=== PATIENT | female | born 1970 | race African-American/Black ===

== ENCOUNTER 2018-05-07 07:37 | Emergency (ER) | payer OTHER ==
[2018-05-07 08:08] VITALS: BP 137/83; PULSE 100; TEMP 98.4; BMI 38.7
[2018-05-07] MEDS ORDERED: KETOROLAC TROMETHAMINE 30 MG/1 ML VIAL IM ONE (08:34)
--- NOTE | 2018-05-07 08:39 | PDOC ---
History of Present Illness - General Chief Complaint: Back Pain Stated Complaint: LOWER BACK PAIN Time Seen by Provider: 05/07/18 08:29 History Source: Patient Exam Limitations: No Limitations - History of Present Illness Initial Comments: 05/07/18 08:35 48 yr female with c/o right mid back pain for 3 days radiates to her right flank. no abd pain neg fever neg chills neg urine complaints. Pt states pain worse with lying down , relieved in she holds the area. Pt has history of herniated lumbar discs , however this pain is different. pt took ibuprofen and flexeril yesterday without relief. Severity: reports: moderate Pain Location: reports: back (right side mid back) Method of Injury: Yes: unknown Modifying Factors: improves with: None Past History - Past Medical History Allergies/Adverse Reactions: Allergies Allergy/AdvReac Type Severity Reaction Status Date / Time No Known Allergies Allergy Verified 05/07/18 08:01 Home Medications: Ambulatory Orders Diazepam [Valium] 5 mg PO Q8H PRN #12 tablet MDD 15mg 05/07/18 Oxycodone HCl/Acetaminophen [Percocet 5-325 mg Tablet] 1 tab PO Q6H PRN #8 tablet MDD 4 tabs 05/07/18 Asthma: No COPD: No Diabetes: No HTN: No Hypercholesterolemia: No - Suicide/Smoking/Psychosocial Hx Smoking Status: No Smoking History: Never smoked Number of Cigarettes Smoked Daily: 0 Hx Alcohol Use: No Drug/Substance Use Hx: No Substance Use Type: None Review of Systems - Review of Systems Able to Perform ROS?: Yes Is the patient limited Bel[place]ian proficient: No Constitutional: No: Symptoms Reported HEENTM: No: Symptoms Reported Respiratory: No: Symptoms reported Cardiac (ROS): No: Symptoms Reported ABD/GI: No: Symptoms Reported : No: Symptoms Reported Musculoskeletal: Yes: Symptoms Reported, Back Pain Integumentary: No: Symptoms Reported Neurological: No: Symptoms reported *Physical Exam - Vital Signs Last Vital Signs Temp Pulse Resp BP Pulse Ox 98.4 F 100 H 18 137/83 100 05/07/18 08:02 05/07/18 08:02 05/07/18 08:02 05/07/18 08:02 05/07/18 08:02 - Physical Exam General Appearance: Yes: Nourished, Appropriately Dressed HEENT: positive: EOMI, JHONNY, Normal ENT Inspection, TMs Normal, Pharynx Normal Neck: positive: Supple Respiratory/Chest: positive: Lungs Clear, Normal Breath Sounds. negative: Chest Tender Cardiovascular: positive: Regular Rhythm, Regular Rate Gastrointestinal/Abdominal: positive: Normal Bowel Sounds, Soft. negative: Tender Musculoskeletal: positive: Normal Inspection, CVA Tenderness (R). negative: Vertebral Tenderness Extremity: positive: Normal Capillary Refill, Normal Inspection, Normal Range of Motion Integumentary: positive: Normal Color, Dry, Warm Neurologic: positive: Fully Oriented, Alert, Normal Mood/Affect, Normal Response , Motor Strength 5/5 Moderate Sedation - Procedure Monitoring Vital Signs: Procedure Monitoring Vital Signs Temperature 98.4 F 05/07/18 08:02 Pulse Rate 100 H 05/07/18 08:02 Respiratory Rate 18 05/07/18 08:02 Blood Pressure 137/83 05/07/18 08:02 O2 Sat by Pulse Oximetry (%) 100 05/07/18 08:02 Medical Decision Making - Medical Decision Making 05/07/18 08:38 cc: mid back pain radiating to right flank, positional no fever no chest pain noo SOB no rashes no foreign travel will r/o kidney infection, pneumonia no evidence of herpes zoster toradol for pain 05/07/18 09:23 *DC/Admit/Observation/Transfer Diagnosis at time of Disposition: Back pain Qualifiers: Back pain location: thoracic back pain Chronicity: acute Back pain laterality: right Qualified Code(s): M54.6 - Pain in thoracic spine - Discharge Dispostion Disposition: HOME Condition at time of disposition: Good - Prescriptions Prescriptions: Diazepam [Valium] 5 mg PO Q8H PRN #12 tablet MDD 15mg PRN Reason: Muscle Spasms Oxycodone HCl/Acetaminophen [Percocet 5-325 mg Tablet] 1 tab PO Q6H PRN #8 tablet MDD 4 tabs PRN Reason: Severe Pain - Referrals Referrals: Keshawn Woodson MD [Primary Care Provider] - - Patient Instructions Additional Instructions: please call your primary care doctor TUESDAY to make appointment for follow up this week take valium as directed for muscle spasm as needed take percocet for severe pain , do not take with the valium, you can take valium with ibuprofen apply warm compresses, heating pad to the area of pain if any worsening symptoms return to the ER - Post Discharge Activity
[2018-05-07 09:06] LABS: URINE APPEARANCE CLOUDY; URINE BILIRUBIN NEGATIVE (<2.0 mg/dL); URINE COLOR YELLOW; URINE GLUCOSE (UA) NEGATIVE (NEGATIVE); URINE KETONE NEGATIVE (NEGATIVE); URINE LEUK ESTERASE TRACE (NEGATIVE); URINE NITRITE NEGATIVE (NEGATIVE); URINE PROTEIN NEGATIVE (NEGATIVE); URINE UROBILINOGEN NEGATIVE mg/dL (0.2-1.0)
[2018-05-07 09:14] LABS: EPI CELLS MANY /HPF (FEW); URINE BACTERIA RARE /hpf (NONE SEEN); URINE MUCUS FEW
== END 2018-05-07 11:20 | disposition home or self-care (01) ==
LOC: JERFT 07:37
PROC: 3E0233Z Introduction of Anti-inflammatory into Muscle, Percutaneous Approach (ICD-10-PCS; principal; 2018-05-07)
DX: M54.6 Pain in thoracic spine (principal)
CPT/HCPCS: 71046-TC-FY; 76775-TC; 81003; 81015; 96372; 99281-25

== ENCOUNTER 2018-08-04 08:14 | Emergency (ER) | payer OTHER ==
[2018-08-04 08:17] VITALS: BP 141/91; PULSE 91; TEMP 98.2; BMI 38.7
--- NOTE | 2018-08-04 08:41 | PDOC ---
History of Present Illness - General Chief Complaint: Ingestion Stated Complaint: OTHER Time Seen by Provider: 08/04/18 08:35 History Source: Patient Exam Limitations: No Limitations - History of Present Illness Initial Comments: 08/04/18 08:58 States woke up this morning and had a missing dental cap That was an implant From an upper first molar. Was concerned because it has a sharp projection from that and didn't know if it would pass safely. Is uncertain as to have a foreign body sensation in her throat and was too afraid to swallow anything to drink this morning. Occurred: reports: yesterday Pain Location: reports: none Method of Injury: Yes: unknown Associated Symptoms (Fall): denies symptoms Past History - Travel Traveled outside of the country in the last 30 days: No Close contact w/someone who was outside of country & ill: No - Past Medical History Allergies/Adverse Reactions: Allergies Allergy/AdvReac Type Severity Reaction Status Date / Time No Known Allergies Allergy Verified 08/04/18 08:30 Home Medications: Ambulatory Orders NK [No Known Home Medication] 08/04/18 Asthma: No COPD: No Diabetes: No HTN: No Hypercholesterolemia: No Thyroid Disease: Yes (hypo) - Suicide/Smoking/Psychosocial Hx Smoking Status: No Smoking History: Never smoked Have you smoked in the past 12 months: No Number of Cigarettes Smoked Daily: 0 Information on smoking cessation initiated: No Hx Alcohol Use: No Drug/Substance Use Hx: No Substance Use Type: None Review of Systems - Review of Systems Able to Perform ROS?: Yes Is the patient limited Bulgarian proficient: Yes Constitutional: Yes: Symptoms Reported, See HPI. No: Fever, Malaise HEENTM: Yes: See HPI. No: Symptoms Reported Respiratory: Yes: See HPI All Other Systems: Reviewed and Negative *Physical Exam - Vital Signs Last Vital Signs Temp Pulse Resp BP Pulse Ox 98.2 F 91 H 18 141/91 100 08/04/18 08:14 08/04/18 08:14 08/04/18 08:14 08/04/18 08:14 08/04/18 08:14 - Physical Exam General Appearance: Yes: Nourished, Appropriately Dressed. No: Apparent Distress HEENT: positive: JHONNY, Normal ENT Inspection (no redness/ swelling / redness to throat), TMs Normal, Pharynx Normal (no redness/ swelling ) Neck: positive: Supple, Lymphadenopathy (R), Lymphadenopathy (L). negative: Tender Respiratory/Chest: positive: Lungs Clear, Normal Breath Sounds Gastrointestinal/Abdominal: positive: Normal Bowel Sounds, Soft. negative: Tender Musculoskeletal: positive: Normal Inspection Extremity: positive: Normal Capillary Refill Integumentary: positive: Dry, Warm, Pale Neurologic: positive: solar pv installer II-XII NML intact, Fully Oriented, Alert, Normal Mood/ Affect, Normal Response, Motor Strength 5/5 Progress Note - Progress Note Progress Note: Foreign body ingestion, no evidence of foreign body noted in throat, airway patent. *DC/Admit/Observation/Transfer Diagnosis at time of Disposition: Swallowed foreign body Qualifiers: Encounter type: initial encounter Qualified Code(s): T18.9XXA - Foreign body of alimentary tract, part unspecified, initial encounter - Discharge Dispostion Disposition: HOME Condition at time of disposition: Stable Decision to Admit order: No - Referrals Referrals: Keshawn Woodson MD [Primary Care Provider] - - Patient Instructions Printed Discharge Instructions: DI for Foreign Body, Swallowed-Adult Additional Instructions: drink lots of fluids, Watch for tooth to expell. Followup with dentist - Post Discharge Activity Forms/Work/School Notes: Back to Work
== END 2018-08-04 09:18 | disposition home or self-care (01) ==
LOC: JERFT 08:14
DX: T18.9XXA Foreign body of alimentary tract, part unspecified, initial encounter (principal); E03.9 Hypothyroidism, unspecified
CPT/HCPCS: 70360-TC-FY; 99281-25